=== PATIENT | male | born 1980 | race Caucasian/White ===

== ENCOUNTER 2019-02-01 19:47 | Emergency (ER) | payer SELFPAY ==
--- NOTE | 2019-02-01 22:25 | ED ---
Throat Pain/Nasal Congestion - HPI Summary HPI Summary: 39-year-old male presents with left ear pain. He states he is one that was walking through the wood and got a stick into his ear. He states he removed the stick but now has pain here. He admits to decreased hearing and states feels like water stuck in it. He denies any history of ear infections. No sinus congestion. No fevers or sore throat. - History of Current Complaint Chief Complaint: EDEarPain Time Seen by Provider: 02/01/19 22:03 - Allergies/Home Medications Allergies/Adverse Reactions: Allergies Allergy/AdvReac Type Severity Reaction Status Date / Time NSAIDS (Non-Steroidal AdvReac Abdominal Verified 02/01/19 20:04 Anti-Inflamma Pain PMH/Surg Hx/FS Hx/Imm Hx Endocrine/Hematology History: Denies: Hx Anticoagulant Therapy Respiratory History: Denies: Hx Asthma Infectious Disease History: No Infectious Disease History: Denies: Traveled Outside the [place] in Last 30 Days - Family History Known Family History: Positive: Non-Contributory - Social History Alcohol Use: unk Substance Use Type: Reports: None Smoking Status (MU): Unknown if Ever Smoked Review of Systems Negative: Fever Positive: Other - left ear pain Negative: Chest Pain Negative: Shortness Of Breath All Other Systems Reviewed And Are Negative: Yes Physical Exam Triage Information Reviewed: Yes Vital Signs On Initial Exam: Initial Vitals Temp Pulse Resp BP Pulse Ox 98.0 F 68 16 132/83 99 02/01/19 20:00 02/01/19 20:00 02/01/19 20:00 02/01/19 20:00 02/01/19 20:00 Vital Signs Reviewed: Yes Appearance: Positive: Well-Appearing Skin: Positive: Warm, Dry Head/Face: Positive: Normal Head/Face Inspection Eyes: Positive: Normal, EOMI, OVIDIO, Conjunctiva Clear ENT: Positive: Pharynx normal, TMs normal, Other - abrasion noted to left ear canal Respiratory/Lung Sounds: Positive: Clear to Auscultation, Breath Sounds Present Cardiovascular: Positive: Normal, RRR Musculoskeletal: Positive: Normal Neurological: Positive: Normal Psychiatric: Positive: Normal Diagnostics - Vital Signs Vital Signs Temp Pulse Resp BP Pulse Ox 02/01/19 20:00 98.0 F 68 16 132/83 99 - Laboratory Lab Statement: Any lab studies that have been ordered have been reviewed, and results considered in the medical decision making process. EENT Course/Dx - Course Course Of Treatment: 39-year-old male presents with left ear pain. He states he is one that was walking through the wood and got a stick into his ear. He states he removed the stick but now has pain here. He admits to decreased hearing and states feels like water stuck in it. He denies any history of ear infections. No sinus congestion. No fevers or sore throat. On exam has abrasion noted to the left ear. TMs intact. Some edema noted to the ear canal. With abrasion present will place on cipro so does not get infected. Told to start the medication tomorrow. Patient understands and agrees with the plan. - Differential Diagnoses Differential Diagnoses: Abrasion, Otitis Externa, Otitis Media - Diagnoses Provider Diagnoses: Ear canal abrasion Discharge - Sign-Out/Discharge Documenting (check all that apply): Patient Departure Patient Received Moderate/Deep Sedation with Procedure: No - Discharge Plan Condition: Good Disposition: HOME Prescriptions: Ciprofloxacin HCl [Ciprofloxacin 0.2% EAR DROPS] 4 drop OT BID #1 bottle Referrals: No Primary Care Phys,NOPCP [Primary Care Provider] - Additional Instructions: establish care with primary Use 4 drops twice a day for 7 days Take Tylenol or ibuprofen for pain every 6 hours as needed Avoid swimming until done with antibiotic Return to ED if develop any new or worsening symptoms - Billing Disposition and Condition Condition: GOOD Disposition: Home
[2019-02-01 22:35] VITALS: BP 121/65
== END 2019-02-01 22:34 | disposition home or self-care (01) ==
LOC: ED 19:47
DX: S00.412A Abrasion of left ear, initial encounter (principal); H92.02 Otalgia, left ear; W45.8XXA Other foreign body or object entering through skin, initial encounter; Y92.9 Unspecified place or not applicable
CPT/HCPCS: 99282